=== PATIENT | female | born 1980 | race Two or more races ===

== ENCOUNTER 2024-04-30 21:11 | Emergency (ER) | payer MEDICAID, SELFPAY ==
[2024-04-30 21:12] VITALS: BMI 31.1
--- NOTE | 2024-04-30 21:25 | EKG_ITS ---
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: : 1980 Requested By: ED Temporary Provider Order Number: [id number] Reading MD: ED Temporary Provider Measurements Intervals Quinter Rate: 72 P: 35 ND: 167 QRS: -15 QRSD: 104 T: 47 QT: 377 QTc: 413 Interpretive Statements SINUS RHYTHM LOW QRS VOLTAGE IN PRECORDIAL LEADS [QRS DEFLECTION < 1.0 mV IN CHEST LEADS] INCOMPLETE RIGHT BUNDLE BRANCH BLOCK [90+ ms QRS DURATION, TERMINAL R IN V1/V2, 40+ ms S IN I/aVL/V4/V5/V6] POSSIBLE ANTERIOR MYOCARDIAL INFARCTION , OF INDETERMINATE AGE [30 ms Q WAVE IN V3/V4, OR R < 0.2 mV IN V4] No previous ECG available for comparison /[id number]/[email or web address]/[id number].pdf
[2024-04-30 21:59] VITALS: BP 135/73; PULSE 90; RESP 18; TEMP 36.7; O2SAT 98
--- NOTE | 2024-04-30 22:31 | PD.EDANX ---
ED Anxiety RME/HPI General Chief Complaint: Anxiety Stated Complaint: ANXIETY/ HIGH BP Time Seen by Provider: 04/30/24 21:52 Arrival date/time: 04/30/24 21:11 This is a 44-year-old female that comes in with complaints of anxiety and high blood pressure. Patient states she was recently started on medication for anxiety and she has been on it for over the last 2 days. Patient states she does not feel like it is working. Patient was given BuSpar. Patient's blood pressure is normal here but at home she said it was a little elevated. Her primary doctor has seen her for this problem and is supposed to recheck it at the next doctor's appointment. Related Data Allergies Allergy/AdvReac Type Severity Reaction Status Date / Time NKA* Allergy Uncoded 10/22/13 22:22 Review of Systems Review of Systems Systems Reviewed: All systems reviewed, normal except as documented Past Medical History Past Medical History Comments PMH COMMENT: Denies ED Exam General General appearance: Present alert and in no apparent distress Head Head exam: Present atraumatic Eye Eye exam: Present normal appearance, PERRL and EOMI ENT ENT exam: Present normal exam, normal oropharynx and mucous membranes moist Neck Neck exam: Present normal inspection, full ROM and trachea midline Chest Chest inspection: Present normal inspection and symmetric chest wall rise Respiratory Respiratory exam: Present normal lung sounds bilaterally Cardiovascular Cardiovascular exam: Present regular rate, normal rhythm and normal heart sounds Abdominal Exam Abdominal exam: Present soft Extremities Exam Extremities exam: Present normal inspection and full ROM Back Exam Back exam: Present normal inspection and full ROM Neurological Exam Neurological exam: Present alert, oriented X3 and CN II-XII intact Psychiatric Psychiatric exam: Present other (Anxious) Skin Skin exam: Present warm, dry, intact and normal color Course Quality Measures none Orders Category Date Time Status EKG (ED ONLY) *Do not use* NOW Care 04/30/24 21:25 Completed EKG (ED Only) Stat Exams 04/30/24 21:25 Draft Vital Signs Vital signs: Vital Signs Temperature 98.1 F 04/30/24 21:59 Pulse Rate 90 04/30/24 21:59 Respiratory Rate 18 04/30/24 21:59 Blood Pressure 135/73 H 04/30/24 21:59 Pulse Oximetry (%) 98 04/30/24 21:59 Oxygen Delivery Method Room Air 04/30/24 21:59 Procedures -ED EKG Interpretation #1: Date of EK04/30/24 Time of EK:01 Rate: 72 Interpretation: Interpreted by me (Sinus rhythm) EKG Impression: No ectopy, Normal QRS and Normal intervals Anxiety MDM Narrative MDM Narrative: Patient has been dealing with anxiety recently. It does not appear that medication is taken full effect as she just started the medication not too long go. Will give patient a dose of Ativan to see if this helps symptoms. Patient told to follow-up with primary provider in 1 to 2 days. Come back to the emergency room if symptoms change or worsen. Patient data External records reviewed:: [facility] previous records Clinical information provided by:: patient Social determinants that could affect healthcare access:: none Patient has the following chronic illnesses:: Anxiety How is presenting disease/condition affected by chronic disease/condition?: exacerbated by Evaluation data The following diagnostics were reviewed and interpreted by me:: EKG tracing(s) Lab and/or radiology exams considered but not ordered:: None Interpretation Summary: See note Medications / Prescriptions Medications or Prescriptions considered but not ordered:: None Medication administrations:: Ativan Consultations Consultation(s) initiated? (list below): No Diagnosis Most likely diagnosis given after review of the tests above:: Anxiety Admission Indicated Admission indicated?: not indicated Admission Request Was there a request for admission?: No Disposition Plan Disposition Plan: Discharge Discharge Attestation Discharge Attestation: The patient and all family members were given an opportunity to ask questions and understood the discharge instructions. Discharge instructions specifically effects, indications for sooner follow up or return to the emergency department, and the expected course of current diagnosis. Patient condition: Stable Discharge Plan Plan Patient Disposition: HOME (Self Care) Patient condition on transfer: Stable Prescriptions/Referrals Referrals: Temporary Provider,ED [Physician] - In 1 week Problem List Clinical Impression: Acute anxiety Patient/Caregiver Discharge Instructions Discharge Activity: activity as tolerated Education Materials: ED Anxiety Reaction Additional Instructions: Continue taking prescribed medication BuSpar. Sometimes it takes a couple days-weeks for it to take full effect into your system. Follow-up with primary provider in 1 to 2 days. Come back to the emergency room if symptoms change or worsen Print Language: German Stand Alone Forms: Gwen Award Info., Patient Portal Info Letter RANDY/VISH Supervising Physician RANDY/VISH Supervising Physician: kevin
[2024-04-30] MEDS: LORazepam 0.5 MG TABLET 1 MG PO (22:40)
== END 2024-04-30 23:21 | disposition home or self-care (01) ==
LOC: SERX 23:32
PROVIDERS: Emergency Provider Emergency Medicine; PCP Family Medicine
DX: F41.9 Anxiety disorder, unspecified (principal)
CPT/HCPCS: 93005; 99283; A9270